=== PATIENT | male | born 1985 | race American Indian/Alaskan Native ===

== ENCOUNTER 2018-01-11 21:10 | Emergency (ER) | payer OTHER ==
[2018-01-11] MEDS ORDERED: NACL 0.9% 1000 ML 1,000 ML IV ONE (21:24)
[2018-01-11] MEDS ORDERED: XYLOCAINE TOPICAL 2% 5ML TP ONE (21:44)
[2018-01-11] MEDS ORDERED: XYLOCAINE TOPICAL 2% 5ML ONE (21:44)
[2018-01-11] MEDS ORDERED: ZOFRAN IM ONE (21:46)
[2018-01-11] MEDS ORDERED: DILAUDID IV ONE (21:46)
[2018-01-11] MEDS ORDERED: DILAUDID IM ONE (21:46)
[2018-01-11] MEDS ORDERED: ZOFRAN IV ONE (21:47)
[2018-01-11 21:50] LABS: Basophils # (Auto) 0.1 K/mm3 (0.0-0.1); Eosinophils # (Auto) 0.2 K/mm3 (0.0-0.4); Eosinophils % (Auto) 2.5 % (0.0-4.3); Hemoglobin 14.1 gm/dl (11.8-15.2); Lymphocytes # (Auto) 2.1 K/mm3 (1.2-5.4); Lymphocytes % (Auto) 28.3 % (13.4-35.0); Mean Corpuscular HGB Conc 35 % (32-34); Mean Corpuscular Hemoglobin 30 pg (28-32); Mean Corpuscular Volume 87 fl (84-94); Monocytes # (Auto) 0.9 K/mm3 (0.0-0.8); Platelet Count 381 K/mm3 (140-440); Red Blood Count 4.71 M/mm3 (3.65-5.03); Red Cell Distribution Width 12.9 % (13.2-15.2)
--- NOTE | 2018-01-11 21:55 | Emergency Department Report ---
HPI - General Chief Complaint: GI Bleed Time Seen by Provider: 01/11/18 21:34 - HPI HPI: Room 26 The patient is a 32-year-old male presenting with a chief complaint of rectal pain and bleeding. The patient states approximately 2 weeks ago he had some diarrhea but this seemed to resolve. The patient states approximately 8 or 9 days ago he noticed himself straining to have a bowel movement. The patient states he's had rectal pain for the past 8-9 days. The patient states today he started having rectal bleeding in addition to the pain. Patient denies abdominal pain or fever. Location: Rectum Duration: 8-9 days Quality: Pain Severity: 03/23 Modifying factors: [see above] Context: [see above] Mode of transportation: The patient drove his car here but states he will take a Uber home if he is given narcotic pain medication ED Past Medical Hx - Past Medical History Previous Medical History?: No - Surgical History Past Surgical History?: No - Family History Family history: no significant - Social History Smoking Status: Never Smoker Substance Use Type: None (denies illicit drug use), Alcohol (rarely) - Medications Home Medications: Home Medications Medication Instructions Recorded Confirmed Last Taken Type Docusate Sodium [Colace] 100 mg PO BID #60 capsule 01/11/18 Unknown Rx Hydrocortisone [Anusol-Hc] 30 gm RC BID #30 gm 01/11/18 Unknown Rx Lidocaine/Aloe Vera 227 gm TP BID PRN #227 gel..gram. 01/11/18 Unknown Rx [Aloe-Lidocaine 0.5% Gel] Nitroglycerin [Rectiv] 30 gm RC BID #30 gm 01/11/18 Unknown Rx oxyCODONE /ACETAMINOPHEN [Percocet 1 - 2 tab PO Q6HR PRN #20 tablet 01/11/18 Unknown Rx 5/325] ED Review of Systems ROS: Stated complaint: RECTAL BLEEDING Other details as noted in HPI Constitutional: denies: fever Eyes: denies: eye pain ENT: denies: throat pain Respiratory: no symptoms reported Cardiovascular: denies: chest pain Endocrine: denies: unexplained weight loss Gastrointestinal: diarrhea, hematochezia, other (rectal pain). denies: abdominal pain, nausea, vomiting Genitourinary: denies: dysuria Musculoskeletal: denies: back pain Skin: denies: change in color Neurological: denies: headache Physical Exam - Physical Exam Vital Signs: Vital Signs 01/11/18 21:18 Temperature 98.1 F Pulse Rate 105 H Respiratory 18 Rate Blood Pressure 157/100 O2 Sat by Pulse 99 Oximetry Physical Exam: GENERAL: The patient is well-developed well-nourished male standing in room appearing to be in moderate discomfort. [] HEENT: Normocephalic. Atraumatic. Extraocular motions are intact. Patient has moist mucous membranes. NECK: Supple. Trachea midline CHEST/LUNGS: Clear to auscultation. There is no respiratory distress noted. HEART/CARDIOVASCULAR: Regular. There is no tachycardia. There is no gallop rub or murmur. ABDOMEN: Abdomen is soft, nontender. Patient has normal bowel sounds. There is no abdominal distention. SKIN: There is no rash. There is no edema. There is no diaphoresis. NEURO: The patient is awake, alert, and oriented. The patient is cooperative. The patient has normal speech and gait. MUSCULOSKELETAL: There is no evidence of acute injury. RECTAL: 2 large external hemorrhoids that are soft to palpation. No active bleeding visualized ED Course Vital Signs 01/11/18 21:18 Temperature 98.1 F Pulse Rate 105 H Respiratory 18 Rate Blood Pressure 157/100 O2 Sat by Pulse 99 Oximetry - Reevaluation(s) Reevaluation #1: 01/11/18 23:02 Patient states he is improved and feels much better. Abnormal INR and LFTs were discussed with patient and need for follow-up discussed. Patient verbalized understanding ED Medical Decision Making - Lab Data Result diagrams: 01/11/18 21:33 01/11/18 21:33 Laboratory Tests 01/11/18 01/11/18 01/11/18 21:33 21:33 21:33 WBC 7.3 RBC 4.71 Hgb 14.1 Hct 41.0 MCV 87 MCH 30 MCHC 35 H RDW 12.9 L Plt Count 381 Lymph % (Auto) 28.3 [place] % (Auto) 12.0 H Eos % (Auto) 2.5 Baso % (Auto) 1.0 Lymph # 2.1 [place] # 0.9 H Eos # 0.2 Baso # 0.1 Seg Neutrophils % 56.2 Seg Neutrophils # 4.1 PT 15.8 H INR 1.19 H APTT 39.2 H Sodium 137 Potassium 3.9 Chloride 98.3 Carbon Dioxide 26 Anion Gap 17 BUN 12 Creatinine 0.9 Estimated GFR > 60 BUN/Creatinine Ratio 13 Glucose 147 H Calcium 9.3 Total Bilirubin 0.30 AST 53 H ALT 90 H Alkaline Phosphatase 143 H Total Protein 8.3 H Albumin 4.3 Albumin/Globulin Ratio 1.1 Lipase 30 Blood Type Antibody Screen 01/11/18 21:33 WBC RBC Hgb Hct MCV MCH MCHC RDW Plt Count Lymph % (Auto) [place] % (Auto) Eos % (Auto) Baso % (Auto) Lymph # [place] # Eos # Baso # Seg Neutrophils % Seg Neutrophils # PT INR APTT Sodium Potassium Chloride Carbon Dioxide Anion Gap BUN Creatinine Estimated GFR BUN/Creatinine Ratio Glucose Calcium Total Bilirubin AST ALT Alkaline Phosphatase Total Protein Albumin Albumin/Globulin Ratio Lipase Blood Type O NEGATIVE Antibody Screen Negative - Medical Decision Making Patient appears to have subacute external hemorrhoid with pain being symptomatic for over 3 days. Will treat with expectant management, analgesics and nitroglycerin. Patient given referral for a fountain operator for further evaluation of LFTs and referral to colorectal surgeon for further management - Differential Diagnosis external hemorrhoid Critical care attestation.: If time is entered above; I have spent that time in minutes in the direct care of this critically ill patient, excluding procedure time. ED Disposition Clinical Impression: External hemorrhoid, Rectal pain, Elevated LFTs Disposition: TO HOME OR SELFCARE Is pt being admited?: No Does the pt Need Aspirin: No Condition: Stable Instructions: Hemorrhoids (ED) Additional Instructions: Return to the emergency department immediately should you develop worsening symptoms, fever, inability to tolerate food or liquid or any other concerns. Prescriptions: Docusate Sodium [Colace] 100 mg PO BID #60 capsule Hydrocortisone [Anusol-Hc] 30 gm RC BID #30 gm Lidocaine/Aloe Vera [Aloe-Lidocaine 0.5% Gel] 227 gm TP BID PRN #227 gel..gram. PRN Reason: Pain , Severe (7-10) Nitroglycerin [Rectiv] 30 gm RC BID #30 gm oxyCODONE /ACETAMINOPHEN [Percocet 5/325] 1 - 2 tab PO Q6HR PRN #20 tablet PRN Reason: Pain Referrals: CARMENCITA CHENG MD [Staff Physician] - 3-5 Days ACACIA HOLMAN MD [Staff Physician] - [facility] ( is a colorectal surgeon. Please follow-up with him for further evaluation) JACOB WILSON MD [Staff Physician] - 3-5 Days (Dr. Wilson is a surgeon. Please follow up with him or Dr. Holman for further evaluation of your hemorrhoid) Forms: Accompanied Note Time of Disposition: 23:10
[2018-01-11 22:03] LABS: Alanine Aminotransferase 90 units/L (7-56); Albumin 4.3 g/dL (3.9-5); BUN/Creatinine Ratio 13; Blood Urea Nitrogen 12 mg/dL (9-20); Calcium 9.3 mg/dL (8.4-10.2); Hemolysis Index 3; Lipase 30 units/L (13-60)
[2018-01-11 22:04] LABS: INR 1.19 (0.87-1.13)
[2018-01-11 22:05] LABS: Partial Thromboplastin Time 39.2 Sec. (24.2-36.6)
[2018-01-11 23:37] VITALS: BP 120/74
== END 2018-01-11 23:38 | disposition home or self-care (01) ==
LOC: ED 21:10
DX: K64.4 Residual hemorrhoidal skin tags (principal); R94.5 Abnormal results of liver function studies; R19.7 Diarrhea, unspecified
CPT/HCPCS: 36415; 80053; 83690; 85025; 85610; 85730; 86850; 86900; 86901; 93005; 93010; 96361; 96374; 96375; 99284; J1170; J2405; J7030